=== PATIENT | male | born 1995 | race Caucasian/White ===

== ENCOUNTER 2018-06-23 21:37 | Inpatient (IN) | payer BC ==
[~2018-06-23] VITALS: Ht 190.5 cm; Wt 89.4 kg
--- OUTSIDE RECORDS SUMMARY | 2018-06-23 21:40 | XMS REPORT | Continuity of Care Document ---
Author Author [facility] Interface Address Unknown Phone Unavailable Problems Problem Status Onset Date Classification Date Reported Comments Source Body mass index 25-29 - overweight 09/15/2017 Diagnosis 09/15/2017 [facility] Contact dermatitis due to poison mica 09/15/2017 Diagnosis 09/15/2017 [facility] Body Mass Index 25-29 - Overweight 09/15/2017 Problem 09/15/2017 [facility] Asthma 09/15/2017 Problem 09/15/2017 [facility] Contact Dermatitis Due to Poison Mica 09/15/2017 Problem 09/15/2017 [facility] Medications Medication Details Route Status Patient Instructions Ordering Provider Order Date Source Albuterol 0.83 MG/ML Inhalant Solution albuterol sulfate 2.5 mg/3 mL (0.083 %) solution for nebulization Active [facility] Dexamethasone phosphate 4 MG/ML Injectable Solution dexamethasone 4 mg/mL injection solution Take 1 mL by injection route. Active [facility] Hydroxyzine Hydrochloride 25 MG Oral Tablet hydroxyzine HCl 25 mg tablet Take 1 tablet 3 times a day by oral route as needed for 7 days. Active [facility] montelukast 10 MG Oral Tablet montelukast 10 mg tablet TK 1 T PO QD Active [facility] Prednisone 20 MG Oral Tablet prednisone 20 mg tablet Take 3 tabs PO QD X 3 days, then take 2 tabs PO QD x 4 days, then take 1 tab PO QD x 3 days, then take 1/2 tab PO QD x 4 days. Active [facility] 200 ACTUAT Albuterol 0.09 MG/ACTUAT Metered Dose Inhaler [ProAir] ProAir HFA 90 mcg/actuation aerosol inhaler Inhale 2 puffs every 4 hours by inhalation route. Active [facility] Budesonide 0.16 MG/ACTUAT / formoterol fumarate 0.0045 MG/ACTUAT Metered Dose Inhaler Symbicort 160 mcg-4.5 mcg/actuation HFA aerosol inhaler USE 2 PUFFS PO BID - RINSE MOUTH OR DRINK AFTER USE Active [facility] Theophylline 400 MG Extended Release Oral Tablet theophylline ER 400 mg tablet,extended release 24 hr Active [facility] Allergies, Adverse Reactions, Alerts Substance Category Reaction Severity Reaction type Status Date Reported Comments Source Sulfa (Sulfonamide Antibiotics) Allergy to substance 09/15/2017 [facility] Immunizations Immunization Date Given Site Status Last Updated Comments Source Results Order Name Results Value Reference Range Date Interpretation Comments Source Vital Signs Vital Sign Value Date Comments Source Diastolic (mm Hg) 74 09/15/2017 [facility] Height 74 09/15/2017 [facility] Systolic (mm Hg) 118 09/15/2017 [facility] Weight 200 09/15/2017 [facility] Encounters Location Location Details Encounter Type Encounter Number Reason For Visit Attending Provider ADM Date DC Date Status Source [place] - [facility] - [id number] Cohen, FURNITURE INSTALLER-C: [address] [place] [address], Ph. [id number] Ruth Cohen 09/15/2017 [facility] Procedures Procedure Code Date Perfomer Comments Source
--- OUTSIDE RECORDS SUMMARY | 2018-06-23 21:40 | XMS REPORT | Clinical Summary ---
Author Author [facility] Address Unknown Phone Unavailable Care Team Providers Care Disposal Plant Operator Name Role Phone Asked, No Pcp PCP Unavailable Allergies Comments Active Allergy Reactions Severity Noted Date Red eyes Sulfa (Sulfonamide 04/22/2017 Antibiotics) Medications End Date Status Medication Sig Dispensed Refills Start Date Active azelastine-fluticasone 1 spray by 0 (DYMISTA) 137-50 Each Nare mcg/spray route 2 (two) spray,non-aerosol times a day. Active budesonide-formoterol Inhale 2 0 (SYMBICORT) 160-4.5 puffs 2 (two) mcg/actuation inhaler times a day. Rinse mouth or drink after use Active albuterol sulfate (PROAIR Inhale 180 0 RESPICLICK) 90 mcg every 4 mcg/actuation aerosol (four) hours powdr breath activated as needed (for SOB, wheezing). (also prn for pre-exercise) Active Problems Problem Noted Date Severe asthma with exacerbation 04/22/2017 Social History Date Tobacco Use Types Packs/Day Years Used Never Smoker Smokeless Tobacco: Never Used Alcohol Use Drinks/Week oz/Week Comments No Sex Assigned at Date Recorded Not on file Industry Job Start Date Occupation Not on file Not on file Not on file Travel End Travel History Travel Start No recent travel history available. Last Filed Vital Signs Not on file Plan of Treatment Health Maintenance Due Date Last Done Comments INFLUENZA VACCINE 09/06/2018 Results Not on fileafter 06/22/2017 Insurance Payer Benefit Subscriber ID Type Phone Address Plan / Group BCBS BCBS xxxxxxxxxxxxxxx PPO CHOICE PPO/YAZMIN BOLTON PPO Advance Directives Patient has advance care planning documents on file. For more information, karsten e contact: Jean-Pierre [address] [place] [address]
--- OUTSIDE RECORDS SUMMARY | 2018-06-23 21:40 | XMS REPORT | Encounter Summary ---
Author Organization Unknown Address [address] [place] [id number] Phone [phone] Care Team Providers Care Chief Data Officer Name Role Phone Luis Alfredo Cruz MD 3 [phone] Reason for Visit Medical Complaint Instructions 1. Contact dermatitis due to poison mica prednisone 20 mg tablet hydroxyzine HCl 25 mg tablet dexamethasone 4 mg/mL injection solution 2. Body mass index 25-29 - overweight body mass index: care instructions Discussion Note Pt is in NAD; Verbalizes understanding of all instructions with no questions at this time. Plan of Care Patient Instructions Take Hydroxyzine as directed for itching. Do not drive or operate machinery while on this medication. Take steroid taper as directed and with food to avoid heartburn. Use cold, wet cloths to reduce itching. Keep cool, and stay out of the sun. Leave the rash open to the air. Wash all clothing or other things that may have come in contact with the plant oil. Avoid most lotions and ointments until the rash heals. Calamine lotion may help relieve symptoms of a plant rash. Use it 3 or 4 times a day. Take medications as prescribed and follow up with a PCP within 2-3 if symptoms worsen as discussed. In case of emergency: worsening swelling, difficulty breathing, or shortness of breath call 911 or go to nearest ER. Recommend follow a low sodium/fat/carb diet and exercise 30-45 mins/d 3-4 days a week once symptoms resolve. Reminders Provider Appointments None recorded. Lab None recorded. Referral None recorded. Procedures None recorded. Surgeries None recorded. Imaging None recorded. Medications Name Start Date albuterol sulfate 2.5 mg/3 mL (0.083 %) solution for nebulization dexamethasone 4 mg/mL injection solution Take 1 mL by injection route. hydroxyzine HCl 25 mg tablet Take 1 tablet 3 times a day by oral route as needed for 7 days. montelukast 10 mg tablet TK 1 T PO QD prednisone 20 mg tablet Take 3 tabs PO QD X 3 days, then take 2 tabs PO QD x 4 days, then take 1 tab PO QD x 3 days, then take 1/2 tab PO QD x 4 days. ProAir HFA 90 mcg/actuation aerosol inhaler Inhale 2 puffs every 4 hours by inhalation route. Symbicort 160 mcg-4.5 mcg/actuation HFA aerosol inhaler USE 2 PUFFS PO BID - RINSE MOUTH OR DRINK AFTER USE theophylline ER 400 mg tablet,extended release 24 hr Medications Administered Name Date dexamethasone 4 mg/mL injection solution Take 1 mL by injection route. [id number] Vitals Height Weight BMI Blood Pressure 6 ft 2 in 200 lbs 25.7 kg/m2 118/74 mm[Hg] Lab Results None recorded. Allergies Code Code System Name Reaction Severity Status Onset Sulfa (Sulfonamide Antibiotics) Active Problems Name Status Onset Date Source Body Mass Index 25-29 - Overweight Active 09/15/2017 Asthma Active 09/15/2017 Contact Dermatitis Due to Poison Mica Active 09/15/2017 Procedures None recorded. Vaccine List None recorded. Social History Smoking Status Never Smoker Past Encounters 09/15/2017 Contact Dermatitis Due to Poison Mica; Body Mass Index 25-29 - Overweight Ruth Cohen, FIBER ANALYST-C: [address] [place] [address], Ph. History of Present Illness Ivfp-Vcilvep-Pxjkh-Skin Lesion-Bite 1 Reported By: Patient HPI: Location: chest, abdomen, arms, legs. Quality: not painful, itchy, red, multiple, generalized. Severity: worsening, moderate. Duration: has noted for <1 week. Onset/Timing: gradual onset, recurring. Context: no new detergents or skin products, no one else with similar rash, no sting or bite, scratching; 5 days after contact with poison mica while walking in wooded area. Aggravating factors: clothing. Alleviating factors: nothing gives relief. Associated Symptoms: no fever/chills, no muscle aches, no headache, no cold symptoms, no nausea, no vomiting, no diarrhea, no urinary symptoms Review of Systems Basic Reported By: Patient Constitutional: Constitutional: no fever Eyes: Eyes: no eye complaints Tyoe-Zsuy-Cqrfi-Throat: Ears: no ear complaints. Nose: no nose/sinus problems. Mouth/Throat: no sore throat, no bleeding gums, no mouth complaints, no teeth problems Cardiovascular: Cardiovascular: no chest pain, no shortness of breath, no known heart murmur Respiratory: Respiratory: no cough, no wheezing, no shortness of breath Gastrointestinal: Gastrointestinal: no abdominal pain, no vomiting / diarrhea Genitourinary: Genitourinary: no urinary complaints, no discharge Musculoskeletal: Musculoskeletal: no muscle aches, no muscle weakness, no arthralgias/joint pain, no back pain Skin: Skin: no abnormal / changing mole, no jaundice, rash, itching Neurologic: Neurologic: no loss of consciousness, no weakness, no numbness, no seizures, no dizziness, no headaches Physical Exam Adult Basic, 14-21 Yr Male, Adult Male Complete Reported By: Patient Constitutional: General Appearance: healthy-appearing, well-nourished, well-developed, overweight. Level of Distress: NAD. Ambulation: ambulating normally Psychiatric: Mental Status: active and alert, normal affect, normal mood. Orientation: to time, to place, to person Eyes: Lids and Conjunctivae: non-injected, no discharge Neck: Neck: supple. Lymph Nodes: no cervical LAD Lungs: Respiratory effort: no dyspnea, no tachypnea, no use of accessory muscles, no intercostal retractions. Auscultation: breath sounds normal, clear to auscultation, no wheezing, no rales/crackles, no rhonchi, no retractions, good air movement Cardiovascular: Heart Auscultation: RRR, no murmurs, no gallops, no rub. Rate and rhythm: regular Neurologic: Gait and Station: normal gait, normal station Skin: Inspection and palpation: rash
--- OUTSIDE RECORDS SUMMARY | 2018-06-23 21:40 | XMS REPORT ---
Author Author [facility] Address Unknown Phone Unavailable Care Team Providers Care Telesales Specialist Name Role Phone Bhavna HAYS Unavailable Unavailable Problems This patient has no known problems. Allergies, Adverse Reactions, Alerts This patient has no known allergies or adverse reactions. Medications This patient has no known medications. Results Test Description Test Time Test Comments Text Results Atomic Results Result Comments CHEST SINGLE (PORTABLE) [place] [address] Patient Name: NIGHAT RESTREPO MR #: [id number] : 1995 Age/Sex: 21/M Req #: [id number] [facility] Physician: Ordered by: ROB HAYS MD Report #: [id number] Location: ER Room/Bed: Procedure: [id number] DX/CHEST SINGLE (PORTABLE) Exam Date: 10/15/16 Exam Time: 929 REPORT STATUS: Signed EXAMINATION: Chest, CHEST SINGLE (PORTABLE) INDICATION: Chest pain COMPARISON: None FINDINGS: LINES: None. Heart: Normal cardiac silhouette. Vascular: The pulmonary vasculature is within normal limits. Mediastinum: No mediastinal, hilar, or axillary mass or lymphadenopathy. Lungs: No parenchymal mass. No focal consolidation. Bibasilar atelectasis. Pleura: No pleural effusion. No pneumothorax. Bones: No acute osseous abnormality. Soft tissues: Normal. Impression: No acute radiographic abnormality. Signed by: Dr. Peg Chung M.D. on 10/15/2016 9:52 AM Dictated By: PEG CHUNG MD 1 Transcribed By: TON on 10/15/16951 COPY TO: ROB HAYS MD
[2018-06-23] MEDS ORDERED: ALBUTEROL SULF 0.083% NEB SOLN 3 ML NEB NEB STA (21:48)
[2018-06-23] MEDS ORDERED: METHYLPREDNISOLONE SOD SUCC 125 MG/2ML VIAL ONE (21:53)
--- NOTE | 2018-06-23 21:53 | NUR ---
RT AT BS; PT RECEIVING HHN TX PER MD ORDERS AT THIS TIME, TOLERATING WELL
[2018-06-23] MEDS ORDERED: ALBUTEROL SULF 0.083% NEB SOLN 3 ML NEB ONE (21:54)
[2018-06-23] MEDS ORDERED: ACETAMINOPHEN 325 MG TAB PO ONE (22:00)
[2018-06-23] MEDS ORDERED: CEFTRIAXONE SOD 1 GM/NS 50 ML 50 ML IV ONE (22:00)
[2018-06-23] MEDS ORDERED: IPRATROPIUM BROMIDE 0.02% 2.5 ML NEB NEB ONE (22:00)
[2018-06-23] MEDS ORDERED: METHYLPREDNISOLONE SOD SUCC 125 MG/2ML VIAL IV ONE (22:00)
[2018-06-23 22:11] LABS: BASOPHILS # (AUTO) 0.1 (0.0-0.1); BASOPHILS % 0.7 % (0.0-1.0); EOSINOPHILS # (AUTO) 1.7 (0.0-0.4); EOSINOPHILS % 15.3 % (0.0-6.0); HEMATOCRIT 47.5 % (38.2-49.6); HEMOGLOBIN 17.3 g/dL (14.0-18.0); LYMPHOCYTES # (AUTO) 1.8 (1.0-3.2); LYMPHOCYTES % 15.5 % (18.0-39.1); MEAN CORPUSCULAR HEMOGLOBIN 29.2 pg (28-32); MEAN CORPUSCULAR HGB CONC 36.4 g/dL (31-35); MEAN CORPUSCULAR VOLUME 80.2 fL (81-99); MONOCYTES # (AUTO) 0.9 (0.2-0.8); MONOCYTES % 8.3 % (4.4-11.3); NEUTROPHILS # (AUTO) 6.8 (2.1-6.9); NEUTROPHILS % 59.8 % (38.7-80.0); PLATELET COUNT 328 x10e3/uL (140-360); RED BLOOD COUNT 5.92 x10e6/uL (4.3-5.7); RED CELL DISTRIBUTION WIDTH 12.5 % (11.7-14.4)
[2018-06-23] MEDS ORDERED: IPRATROPIUM BROMIDE 0.02% 2.5 ML NEB ONE (22:16)
[2018-06-23 22:24] LABS: STREPTOCOCCUS GRP A ANTIGEN NEGATIVE (NEGATIVE)
[2018-06-23 22:28] LABS: ALANINE AMINOTRANSFERASE 15 IU/L (0-55); ALBUMIN 4.5 g/dL (3.5-5.0); ALBUMIN/GLOBULIN RATIO 1.2 (0.8-2.0); ALKALINE PHOSPHATASE 84 IU/L (40-150); ANION GAP 14.8 mmol/L (8-16); BLOOD UREA NITROGEN 14 mg/dL (7-26); BUN/CREATININE RATIO 11 (6-25); CARBON DIOXIDE 24 mmol/L (22-29); CHLORIDE 103 mmol/L (98-107); CREATININE, SERUM 1.22 mg/dL (0.72-1.25); EST GLOMERULAR FILTRATION RATE > 60 ML/MIN (60-); GLUCOSE 100 mg/dL (74-118); POTASSIUM 3.8 mmol/L (3.5-5.1); SODIUM 138 mmol/L (136-145)
[2018-06-23 22:31] LABS: INFLUENZAE A&B ANTIGEN (RAPID) NEGATIVE (NEGATIVE)
[2018-06-23] MEDS ORDERED: SODIUM CHLORIDE 0.9% 1000ML 1,000 ML ONE (23:28)
[2018-06-23] MEDS ORDERED: SODIUM CHLORIDE 0.9% 1000ML 1,000 ML IV ONE (23:30)
[2018-06-23] MEDS ORDERED: AZITHROMYCIN 500MG/NS 250 ML 250 ML IV STA (23:38)
[2018-06-23] MEDS ORDERED: THEOPHYLLINE A200 MG PO (23:47)
[2018-06-23] MEDS ORDERED: ZYRTEC10 MG PO (23:47)
[2018-06-23] MEDS ORDERED: PROAIR HFA INH8.5 GM INH (23:47)
[2018-06-23] MEDS ORDERED: DYMISTA NASAL S23 GM INH (23:47)
[2018-06-23] MEDS ORDERED: INCRUSE INH (23:47)
[2018-06-23] MEDS ORDERED: SYMBICORT 16010.2 GM INH (23:47)
[2018-06-23] MEDS ORDERED: FLONASE INH (23:47)
[2018-06-23] MEDS ORDERED: MONTELUKAST SOD10 MG PO (23:47)
--- NOTE | 2018-06-23 23:56 | Diagnostic Imaging Report ---
EXAMINATION: PA and lateral views of the chest. COMPARISON: None CLINICAL HISTORY: Asthma flareup, cough and fever DISCUSSION: Lines/tubes: None. Lungs: The lungs are well inflated. Patchy ill-defined airspace opacities in the right upper lobe and left midlung. No pulmonary edema. Pleura: There is no pleural effusion or pneumothorax. Heart and mediastinum: Cardiomediastinal silhouette is unremarkable. Pulmonary vasculature is normal. Bones and soft tissues: No acute bony abnormalities. IMPRESSION: Findings in the right upper lobe and left mid lung may reflect developing pneumonia in the appropriate clinical setting. Recommend chest PA and lateral 4-6 weeks after appropriate treatment to document resolution. Signed by: Dr. Byron Joseph M.D. on 06/23/2018 11:53 PM
[2018-06-24] VITALS (10 sets, daily range): BP systolic 108–138; BP diastolic 58–66
[2018-06-24] MEDS ORDERED: ACETAMINOPHEN 325 MG TAB PO PRN (00:15)
[2018-06-24] MEDS ORDERED: FLONASE INH PRN (00:15)
[2018-06-24] MEDS ORDERED: ONDANSETRON HCL INJ 2MG/ML 2ML 2 MG/ML VIAL IV PRN (00:15)
--- OUTSIDE RECORDS SUMMARY | 2018-06-24 00:23 | XMS REPORT | Clinical Summary ---
Author Author [facility] Address Unknown Phone Unavailable Care Team Providers Care Video Game Repair Technician Name Role Phone Asked, No Pcp PCP [...] INFLUENZA VACCINE 09/06/2018 Results Not on fileafter 06/23/2017 Insurance Payer Benefit Subscriber ID Type Phone Address Plan / Group BCBS BCBS xxxxxxxxxxxxxxx PPO CHOICE PPO/YAZMIN BOLTON PPO Advance Directives Patient has advance care planning documents on file. For more information, karsten e contact: Jean-Pierre [address] [place] [address]
[2018-06-24] MEDS: AZITHROMYCIN 500MG/SOD CHL 0.9% 250ML BAG IV SCH (00:25)
[2018-06-24] MEDS: CEFTRIAXONE SOD 1 GRAM/0.9% SOD CHL 50ML BAG IV SCH (00:26)
[2018-06-24] MEDS ORDERED: FLUTICASONE PROPIONATE NASAL SPRAY NS PRN (01:30)
[2018-06-24] MEDS: SODIUM CHLORIDE 0.9% 1000ML 1,000 ML IV SCH ×4 (01:38→17:43)
[2018-06-24] MEDS: ALBUTEROL SULF 0.083% NEB SOLN 3 ML NEB NEB SCH ×7 (03:10→23:55)
[2018-06-24 03:24] LABS: EOSINOPHILS % (MANUAL) 17 % (0-7); LYMPHOCYTES % (MANUAL) 14 % (19-48); MONOCYTES % (MANUAL) 6 % (3.4-9.0); NEUTROPHILS % (MANUAL) 63 % (40-74)
[2018-06-24] MEDS ORDERED: METHYLPREDNISOLONE SOD SUCC 40 MG/ML VIAL 1ML IV SCH (06:00)
--- NOTE | 2018-06-24 07:00 | NUR ---
RECEIVED BEDSIDE SHIFT REPORT FROM CAN LINE EXAMINER RN. PT AAOX3. BED AT LOWEST POSITION AND LOCKED. CALL AMAYA WITH IN REACH. PT DENIES NEEDS AT THIS TIME.
[2018-06-24] MEDS: IPRATROPIUM BROMIDE 0.02% 2.5 ML NEB NEB SCH ×5 (07:50→23:55)
[2018-06-24] MEDS: BUDESONIDE/FORMOTEROL 160/4.5MCG INHALER INH SCH ×4 (07:50→21:00)
[2018-06-24] MEDS ORDERED: INCRUSE INH SCH (09:00)
[2018-06-24] MEDS ORDERED: AZELASTINE INH SCH (09:00)
[2018-06-24] MEDS ORDERED: NON-FORMULARY MEDICATION (Cetirizine Hcl (Zyrtec) 10 MG) PO SCH (09:00)
[2018-06-24] MEDS ORDERED: FLUTICASONE INH SCH (09:00)
[2018-06-24] MEDS: LORATADINE 10 MG TAB PO SCH (09:50)
[2018-06-24] MEDS: THEOPHYLLINE 200 MG TABCR PO SCH (09:50)
[2018-06-24] MEDS: MONTELUKAST SODIUM 10 MG TAB PO SCH (09:51)
[2018-06-24] MEDS: METHYLPREDNISOLONE SOD SUCC 40 MG/ML VIAL 1ML IV SCH ×2 (11:44→17:43)
--- NOTE | 2018-06-24 19:01 | NUR ---
BEDSIDE SHIFT REPORT GIVEN TO ELECTRICAL TROUBLESHOOTER RN. PT DENIED FURTHER NEEDS.
[2018-06-25] VITALS (7 sets, daily range): BP systolic 106–168; BP diastolic 65–77
[2018-06-25] MEDS: CEFTRIAXONE SOD 1 GRAM/0.9% SOD CHL 50ML BAG IV SCH (00:13)
[2018-06-25] MEDS: METHYLPREDNISOLONE SOD SUCC 40 MG/ML VIAL 1ML IV SCH ×4 (00:13→17:38)
[2018-06-25] MEDS: AZITHROMYCIN 500MG/SOD CHL 0.9% 250ML BAG IV SCH (00:52)
[2018-06-25] MEDS: ALBUTEROL SULF 0.083% NEB SOLN 3 ML NEB NEB SCH ×5 (03:00→23:00)
[2018-06-25 05:08] LABS: BASOPHILS % 0.1 % (0.0-1.0); EOSINOPHILS % 0.1 % (0.0-6.0); HEMATOCRIT 39.6 % (38.2-49.6); HEMOGLOBIN 14.1 g/dL (14.0-18.0); LYMPHOCYTES # (AUTO) 0.6 (1.0-3.2); LYMPHOCYTES % 4.8 % (18.0-39.1); MEAN CORPUSCULAR HEMOGLOBIN 29.4 pg (28-32); MEAN CORPUSCULAR HGB CONC 35.6 g/dL (31-35); MEAN CORPUSCULAR VOLUME 82.5 fL (81-99); MONOCYTES # (AUTO) 0.6 (0.2-0.8); MONOCYTES % 4.4 % (4.4-11.3); NEUTROPHILS # (AUTO) 11.8 (2.1-6.9); NEUTROPHILS % 90.1 % (38.7-80.0); PLATELET COUNT 258 x10e3/uL (140-360)
[2018-06-25 05:29] LABS: ALANINE AMINOTRANSFERASE 12 IU/L (0-55); ALBUMIN 3.6 g/dL (3.5-5.0); ALBUMIN/GLOBULIN RATIO 1.2 (0.8-2.0); ALKALINE PHOSPHATASE 59 IU/L (40-150); ANION GAP 11.5 mmol/L (8-16); BLOOD UREA NITROGEN 14 mg/dL (7-26); BUN/CREATININE RATIO 14 (6-25); CALCIUM 9.2 mg/dL (8.4-10.2); CARBON DIOXIDE 19 mmol/L (22-29); CHLORIDE 110 mmol/L (98-107); CREATININE, SERUM 0.98 mg/dL (0.72-1.25); EST GLOMERULAR FILTRATION RATE > 60 ML/MIN (60-); GLUCOSE 129 mg/dL (74-118); POTASSIUM 4.5 mmol/L (3.5-5.1); SODIUM 136 mmol/L (136-145)
[2018-06-25] MEDS: SODIUM CHLORIDE 0.9% 1000ML 1,000 ML IV SCH ×2 (05:59→18:00)
[2018-06-25] MEDS: IPRATROPIUM BROMIDE 0.02% 2.5 ML NEB NEB SCH ×3 (07:22→19:30)
[2018-06-25] MEDS: MONTELUKAST SODIUM 10 MG TAB PO SCH (08:50)
[2018-06-25] MEDS: LORATADINE 10 MG TAB PO SCH (08:50)
[2018-06-25] MEDS: THEOPHYLLINE 200 MG TABCR PO SCH (08:50)
[2018-06-25] MEDS: BUDESONIDE/FORMOTEROL 160/4.5MCG INHALER INH SCH ×4 (09:00→21:00)
--- NOTE | 2018-06-25 19:25 | NUR ---
Patient received sitting up in bed. Family at bedside. AAO x 4. Patient had no complaints of pain. Respirations even and non-labored. Fall precautions implemented. Patient instructed to call for assistance when needed. Call light within reach.
[2018-06-26] MEDS: AZITHROMYCIN 500MG/SOD CHL 0.9% 250ML BAG IV SCH (00:15)
[2018-06-26] MEDS: CEFTRIAXONE SOD 1 GRAM/0.9% SOD CHL 50ML BAG IV SCH (00:15)
[2018-06-26 00:41] VITALS: BP 151/67
[2018-06-26] MEDS: METHYLPREDNISOLONE SOD SUCC 40 MG/ML VIAL 1ML IV SCH ×2 (01:05→05:27)
[2018-06-26] MEDS: ALBUTEROL SULF 0.083% NEB SOLN 3 ML NEB NEB SCH ×2 (02:30→08:00)
[2018-06-26] MEDS: IPRATROPIUM BROMIDE 0.02% 2.5 ML NEB NEB SCH ×2 (02:30→08:00)
[2018-06-26 05:03] LABS: EOSINOPHILS % 0.1 % (0.0-6.0); HEMATOCRIT 40.3 % (38.2-49.6); HEMOGLOBIN 14.1 g/dL (14.0-18.0); LYMPHOCYTES # (AUTO) 0.8 (1.0-3.2); LYMPHOCYTES % 6.8 % (18.0-39.1); MEAN CORPUSCULAR HEMOGLOBIN 29.3 pg (28-32); MEAN CORPUSCULAR VOLUME 83.8 fL (81-99); MONOCYTES # (AUTO) 0.2 (0.2-0.8); NEUTROPHILS # (AUTO) 10.1 (2.1-6.9); NEUTROPHILS % 90.8 % (38.7-80.0); PLATELET COUNT 284 x10e3/uL (140-360); RED BLOOD COUNT 4.81 x10e6/uL (4.3-5.7); RED CELL DISTRIBUTION WIDTH 13.1 % (11.7-14.4)
[2018-06-26] MEDS: SODIUM CHLORIDE 0.9% 1000ML 1,000 ML IV SCH (05:27)
[2018-06-26 05:37] VITALS: BP 114/52
--- NOTE | 2018-06-26 07:22 | NUR ---
Patient resting comfortably. Shift report given to oncoming nurse about patient status.
[2018-06-26] MEDS: BUDESONIDE/FORMOTEROL 160/4.5MCG INHALER INH SCH (08:19)
[2018-06-26] MEDS: LORATADINE 10 MG TAB PO SCH (08:27)
[2018-06-26] MEDS: MONTELUKAST SODIUM 10 MG TAB PO SCH (08:27)
[2018-06-26] MEDS: THEOPHYLLINE 200 MG TABCR PO SCH (08:27)
[2018-06-26 08:31] VITALS: BP 114/52
[2018-06-26 11:29] VITALS: BP 116/55
[2018-06-26] MEDS ORDERED: PREDNISONE20 MG PO (11:39)
[2018-06-26] MEDS ORDERED: CEFUROXIME250 MG PO (11:39)
[2018-06-26] MEDS ORDERED: ONDANSETRON HCL 4 MG ORAL DISINTEGRATING TAB PO PRN (12:15)
--- NOTE | 2018-06-26 12:20 | NUR ---
Discharge instructions and prescriptions given to the patient, he verbalized understanding. IV left AC was removed with tip intact. Refused wheelchair assistance
--- NOTE | 2018-06-27 02:27 | Discharge Summary ---
DISCHARGE DIAGNOSES: 1. Exacerbation of asthma. 2. Suspected community acquired pneumonia. HOSPITAL COURSE: Mr. Long is a pleasant 22-year-old gentleman, who has past medical history significant for asthma. He was admitted with a 1-week history of increasing dyspnea, wheezing, cough, and low-grade temperature. He was found to have an increased white cell count of 11,500, decreased O2 sats about 91% to 92% on room air and a chest x-ray that was consistent with a faint infiltrate. He was admitted to the hospital. He was started on a combination of the ceftriaxone and Zithromax as well as on IV steroids and his nebulizers were continued. With the above-mentioned intervention, wheezing has improved greatly as well as the patient's oxygenation. He is being discharged home in stable conditions. He is to continue prednisone 20 mg daily for 10 days and cefuroxime axetil 250 mg twice a day for seven days. He is to resume all his prior home medications and he has already scheduled a followup appointment with his account clerk, Dr. Baumann. MD GET Vasquez/QIAN /[id number]
== END 2018-06-26 12:45 | disposition home or self-care (01) | DRG 202 ==
LOC: ER 21:37 → ERHOLD 06-24 00:21 → MED/SURG2 06-24 01:07
PROVIDERS: ADMIT Internal Medicine; ATTEND Internal Medicine
DX: J45.41 Moderate persistent asthma with (acute) exacerbation (principal); J18.9 Pneumonia, unspecified organism; R09.02 Hypoxemia
CPT/HCPCS: 36415; 71046; 80053; 80198; 83518; 85025; 87040; 87070; 87400; 94640; 96361; 96374; 99284; J0456; J0696; J2920; J2930; J7030